=== PATIENT | male | born 1975 | race Caucasian/White ===

== ENCOUNTER 2016-11-22 02:31 | Emergency (ER) | payer OTHER ==
[2016-11-22 02:43] VITALS: BP 154/91
--- NOTE | 2016-11-22 02:57 | PROVIDER DOCUMENTATION ---
HPI-EENT General - General Chief Complaint: Sore Throat Stated Complaint: SORE THROAT Time Seen by Provider: 11/22/16 02:45 Source: patient Allergies/Adverse Reactions: Patient Allergies Allergy/AdvReac Type Severity Reaction Status Date / Time No Known Allergies Allergy Verified 11/22/16 02:43 Home Medications: Home Medication List Medication Instructions Recorded Confirmed Last Taken Type Omeprazole [Prilosec] 20 mg PO DAILY 11/22/16 11/22/16 11/21/16 History - History of Present Illness-EENT General Nature of Presenting Problem: Pt is a 41 yom who presents to ER with CC of sore throat x2 days, but got significantly worse today. Pt complains of sore throat, difficulty eating/ drinking, and dizziness. Pt denies N/V/D/F. EENT Location: reports: throat Quality of Pain: reports: aching, sharp Severity: reports: moderate Onset/Duration: reports: 2 days ago Timing: reports: still present, getting worse Associated Symptoms: reports: poor fluid intake, poor solids intake, sore throat . denies: change in hearing, cough, drooling, ear drainage, facial pain/ swelling, fever, malaise, nasal congestion/drainage, sinus infection, tooth pain , voice change Similar Symptoms Previously?: No Recently seen or treated by another doctor?: No - Throat/Dental Throat/Dental Problem Symptoms: reports: sore throat, throat swelling. denies: unable to swallow Review of Systems - Adult - REVIEW OF SYSTEMS - ADULT Constitutional: denies: chills, fever, fatique, night sweats, weight gain, weight loss Eyes: reports: no symptoms reported Ears, Nose, Mouth & Throat: reports: throat pain, throat swelling. denies: ear discharge, ear pain, tinnitus, sinus problem, mouth/dental pain, mouth swelling , hoarseness Cardiovascular: reports: no symptoms reported Respiratory: reports: no symptoms reported Gastrointestinal: reports: no symptoms reported Genitourinary: reports: no symptoms reported Musculoskeletal: reports: no symptoms reported Integumentary: reports: no symptoms reported Neurological: reports: dizziness/vertigo. denies: ataxia, headache/migraines, loss of balance, numbness, paresthesia, seizure, slurred speech, syncope, tremors Psychiatric: reports: no symptoms reported Endocrine: reports: no symptoms reported Hematologic/Lymphatic: reports: no symptoms reported Allergic/Immunologic: reports: no symptoms reported All Other Systems: Reviewed and Negative Past History - Adult - PAST MEDICAL HISTORY-ADULT Review of Records: reports: Nursing Assessment Review, Medications Reviewed - IMMUNIZATION STATUS Childhood Immunizations: See Nurse Assessment Flu Vaccine: See Nurse Assessment Physical Exam- EENT - Physical Exam EENT Initial Vital Signs Reviewed: Yes General Appearance: appears well, alert, mild distress, obese. negative: no apparent distress Throat Exam: normal mouth inspection, tonsillar exudate, tonsillar swelling. negative: pharynx normal (red), pharynx tenderness, tongue swollen Neck: non-tender, full range of motion, supple Respiratory: chest non-tender, lungs clear, normal breath sounds, no pleuratic chest pain, no respiratory distress, no accessory muscle use. negative: respiratory distress, decreased breath sounds, accessory muscle use, wheezing Cardiovascular: normal peripheral pulses, regular rate, rhythm. negative: bradycardia, tachycardia, irregularly irregular Abdominal Exam: normal bowel sounds, non tender, soft, no organomegaly, no pulsatile mass. negative: abnormal bowel sounds, distended, tenderness, mass Neurologic: grossly normal, no motor/sensory deficits. negative: facial droop, focal weakness, motor weakness, sensory deficit Psych/Mental Status: normal thought content, normal thought process, oriented x 3, depressed affect. negative: normal mood/affect Progress - PLAN OF CARE/RESULTS Progress/Plan/Lab Results: Vital Signs - 24 hr 11/22/16 02:40 Temperature 97.7 F Pulse Rate 83 Respiratory 18 Rate Blood Pressure 154/91 O2 Sat by Pulse 98 Oximetry Orders Category Date Time Status DIRECT STREP Stat Lab 11/22/16 02:34 Uncollected Departure - Departure Time of Disposition Order: 02:56 DIAGNOSIS: Acute pharyngitis Qualifiers: Pharyngitis/tonsillitis etiology: unspecified etiology Qualified Code(s): J02.9 - Acute pharyngitis, unspecified Disposition: HOME 01 Certified Medical Emergency: Emergent Condition: Stable Additional Instructions: Allow 24-48 hours for medicine. Return to ER or PCP if symptoms worsen. ED Follow Up Instructions: You have been treated by a care provider in the Emergency Department. These instructions are being provided to you so you can have an understanding of how to care for yourself upon discharge. Upon discharge from the Emergency Department, you are responsible for making arrangements for follow-up care by a physician of your choice. Take all prescribed medications as directed. Return to the Emergency Department immediately for any new or worsening symptoms. You may call the Physician Referral phone number at [phone] to obtain a list of Physicians who are taking new patients. Attestation - Scribe Verification/Attestation Scribe:: Patrice Bowers Acting as Scribe for:: Dalton Persaud Scribe documention review:: This chart was documented by a scribe and accurately reflects the service the provider performed and the decisions made by the provider.
[2016-11-22] MEDS ORDERED: BICILLIN L-A IM ONE (02:58)
[2016-11-22] MEDS ORDERED: ULTRAM PO ONE (02:59)
== END 2016-11-22 03:20 | disposition home or self-care (01) ==
LOC: ED 02:31
DX: J02.9 Acute pharyngitis, unspecified (principal); R42 Dizziness and giddiness; R22.1 Localized swelling, mass and lump, neck; E66.9 Obesity, unspecified
CPT/HCPCS: 96372; J0561

== ENCOUNTER 2016-11-23 14:45 | Emergency (ER) ==
[2016-11-23 15:08] VITALS: BP 128/90
--- NOTE | 2016-11-23 15:19 | PROVIDER DOCUMENTATION ---
HPI-EENT General - General Chief Complaint: Sore Throat Stated Complaint: POSS STREP THROAT Time Seen by Provider: 11/23/16 15:09 Source: patient Allergies/Adverse Reactions: Patient Allergies Allergy/AdvReac Type Severity Reaction Status Date / Time No Known Allergies Allergy Verified 11/22/16 02:43 Home Medications: Home Medication List Medication Instructions Recorded Confirmed Last Taken Type Amoxicillin 875 mg PO Q8HR #20 tablet 11/22/16 Unknown Rx Omeprazole [Prilosec] 20 mg PO DAILY 11/22/16 11/22/16 11/21/16 History Diphenhyramine/Al&mg Oh/Lido [Mbx 15 ml MT Q4-6H PRN PRN #1 bottle 11/23/16 Unknown Rx Solution] - History of Present Illness-EENT General Nature of Presenting Problem: This pt presents today c complaints of sore throat. He was diagnosed yesterday c strep throat, given a shot and prescription for antibiotics. He states that today he doesn't feel better and wants a work excuse. No other issues or complaints. EENT Location: reports: throat Quality of Pain: reports: aching Severity: reports: mild Onset/Duration: reports: 3 days ago Timing: reports: still present Prearrival Treatment: Initiated prescription meds Associated Symptoms: reports: sore throat Similar Symptoms Previously?: Yes Recently seen or treated by another doctor?: Yes Review of Systems - Adult - REVIEW OF SYSTEMS - ADULT Constitutional: reports: no symptoms reported. denies: chills, fatique Eyes: reports: no symptoms reported. denies: discharge, dry eyes Ears, Nose, Mouth & Throat: reports: throat pain. denies: ear discharge, ear pain Cardiovascular: reports: no symptoms reported. denies: chest pain, edema Respiratory: reports: no symptoms reported. denies: chronic cough, cough Gastrointestinal: reports: no symptoms reported. denies: abdominal pain, hematemesis Genitourinary: reports: no symptoms reported. denies: dysuria, discharge Musculoskeletal: reports: no symptoms reported. denies: bone pain, back pain Integumentary: reports: no symptoms reported. denies: hives, hair loss Neurological: reports: no symptoms reported. denies: ataxia, dizziness/vertigo Psychiatric: reports: no symptoms reported. denies: anxiety, anti-depressant use Endocrine: reports: no symptoms reported Hematologic/Lymphatic: reports: no symptoms reported Allergic/Immunologic: reports: no symptoms reported All Other Systems: Reviewed and Negative Past History - Adult - PAST MEDICAL HISTORY-ADULT Review of Records: reports: Old Records Reviewed, Nursing Assessment Review, Medications Reviewed, Social history reviewed & non-contributory. Major Childhood Illnesses: reports: denies history Cardiovascular: reports: denies history Respiratory: reports: denies history Gastrointestinal: reports: denies history Obstetrical/Gynecological: reports: denies history Genitourinary: reports: denies history Musculoskeletal: reports: denies history Neurological: reports: denies history Endocrine/Immune: reports: denies history Other Conditions: reports: denies history - IMMUNIZATION STATUS Childhood Immunizations: See Nurse Assessment Flu Vaccine: See Nurse Assessment Physical Exam- EENT - Physical Exam EENT Initial Vital Signs Reviewed: Yes General Appearance: appears well, alert, no apparent distress Eye Exam: bilateral eye: normal inspection, PERRL, EOMI Ear Exam: bilateral ear: auricle normal, canal normal, TM normal Nasal Exam: normal inspection Throat Exam: normal mouth inspection, pharynx tenderness, tonsillar exudate, tonsillar swelling. negative: mandibular swelling, maxillary swelling, pharynx swelling, tongue swollen, uvula swelling, voice changes Neck: non-tender, full range of motion, supple, lymphadenopathy (anterior). negative: C-spine tenderness, limited range of motion Respiratory: chest non-tender, lungs clear, normal breath sounds, no pleuratic chest pain, no respiratory distress, no accessory muscle use Cardiovascular: normal peripheral pulses, regular rate, rhythm, no edema, no gallop, no JVD, no murmur Abdominal Exam: normal bowel sounds, non tender, soft, no organomegaly Back Exam: normal inspection, no CVA tenderness, no vertebral tenderness Extremity: normal range of motion, non-tender, normal gait, normal inspection Integumentary: normal color, normal turgor, warm/dry Neurologic: grossly normal, no motor/sensory deficits. negative: facial droop, focal weakness, motor weakness, sensory deficit Progress - PLAN OF CARE/RESULTS Progress/Plan/Lab Results: Vital Signs Temp Pulse Resp BP Pulse Ox 11/23/16 15:06 98.4 F 102 H 16 128/90 98 No Known Allergies Allergy (Verified 11/22/16 02:43) Amoxicillin 875 mg PO Q8HR #20 tablet 11/22/16 Omeprazole [Prilosec] 20 mg PO DAILY 11/22/16 Departure - Departure Time of Disposition Order: 15:20 DIAGNOSIS: Acute pharyngitis Qualifiers: Pharyngitis/tonsillitis etiology: other specified organisms Qualified Code(s): J02.8 - Acute pharyngitis due to other specified organisms Disposition: HOME 01 Certified Medical Emergency: Urgent Condition: Good Additional Instructions: Take medication as prescribed. Continue taking your antibiotics. Stay well hydrated. ED Follow Up Instructions: You have been treated by a care provider in the Emergency Department. These instructions are being provided to you so you can have an understanding of how to care for yourself upon discharge. Upon discharge from the Emergency Department, you are responsible for making arrangements for follow-up care by a physician of your choice. Take all prescribed medications as directed. Return to the Emergency Department immediately for any new or worsening symptoms. You may call the Physician Referral phone number at [phone] to obtain a list of Physicians who are taking new patients. Prescriptions: Diphenhyramine/Al&mg Oh/Lido [Mbx Solution] 15 ml MT Q4-6H PRN PRN #1 bottle PRN Reason: Sore throat Attestation - Physician/ JEREMY Attestation Patient care was provided by Advanced Practice Provider:: Yes Advanced Practice Provider:: Garth Pelaez Advanced Practice Provider documentation review:: The Mid-level provider documentation, treatment plan and medical decision making was reviewed by the physician who agrees with all treatment and medical decision making by the MLP.
== END 2016-11-23 15:32 | disposition home or self-care (01) ==
LOC: ED 14:45
DX: J02.9 Acute pharyngitis, unspecified (principal); R22.1 Localized swelling, mass and lump, neck; R59.0 Localized enlarged lymph nodes